=== PATIENT | female | born 1975 | race Caucasian/White ===

== ENCOUNTER 2016-07-14 12:50 | Emergency (ER) | payer SELFPAY ==
[2016-07-14 13:08] VITALS: RESP 14; TEMP 97
[2016-07-14] MEDS ORDERED: traMADol 50 MG TABLET PO ONE (13:09)
--- NOTE | 2016-07-14 15:38 | DI ---
RIGHT ANKLE, 07/14/2016 1:04 PM: Clinical History: Injury. Previous Exam: None at this facility. 3 views are submitted. There is minimal soft tissue swelling over the lateral malleolus. No fracture or dislocation is identified. The ankle mortise is intact. There is no joint effusion. Reading: No fracture noted.
--- NOTE | 2016-07-14 17:23 | PDOC ---
Foot / Ankle Injury - General Chief Complaint: Lower Extremity Problem/Injury Stated Complaint: ANKLE INJURY Date Seen by Provider: 07/14/16 Time Seen by Provider: 12:55 Source: POSITIVE: Patient Exam Limitations: POSITIVE: No limitations Nurse's Notes Reviewed & Considered: Yes - History of Present Illness Initial Comments: The patient is a 40-year-old female who is evaluated with right ankle pain. She states that last night she tripped over her cat and subsequently struck her foot on the bed frame. She states that she had significant pain right away however was able to work last night. When she woke up this morning she had a difficult time bearing weight on her right foot secondary to pain over the lateral aspect of her ankle. She denies any other associated injuries or complaints. Have you received a tetanus shot in the past 10 years?: Yes - Patient Allergies Allergies/Adverse Reactions: Allergies Allergy/AdvReac Type Severity Reaction Status Date / Time ketorolac tromethamine Allergy HIVES Verified 07/14/16 12:56 [From Toradol] Penicillins Allergy HIVES Verified 07/14/16 12:56 - Patient Home Medications Home Medications: Home Medications Diazepam [Valium] 10 mg PO BID PRN 07/14/16 HYDROcodone/APAP 5/325 Tab [[place] 5/325 Tab] 1 each PO Q6H PRN #10 tablet Ibuprofen 1,000 mg PO PRN PRN 07/14/16 Past Medical History - heen HEENT History: Denies History Cardiovascular History: Denies History Respiratory History: Denies History Gastrointestinal History: Denies History Genitourinary History: Denies History Endocrine History: Denies History Musculoskeletal History: Back Pain Prosthesis or Implant: No Additional Musculoskeletal History: MULTIPLE KNEE AND ANKLE INJURIES Neurological History: Denies History Blood Disorders: Denies History Psychiatric History: Denies History Female Reproductive History: Denies History Obstetrical History: Denies History Cancer History: Denies History In Past Year Been Physically Harmed or Verbally Threatened: No History of MDRO: No Tobacco Use: Smoker Current Status Unknown Alcohol Use: Rarely Substance Use Type: None Previous Surgical History: Yes Type / Date of Surgery: B/L KNEE ARTHROSCOPY X2, HYSTERECTOMY 2010, HERNIA UMBILICAL REPAIR, LATERAL RELEASE R KNEE Anesthesia Reactions: No Malignant Hyperthermia: No Family History of Malignant Hyperthermia: No Significant Family History: No pertinent family hx Past Medical History Reviewed: Reviewed - No Changes ROS - Limitations ROS Limitations: No Limitations (Review of systems otherwise noncontributory) Foot / Ankle Exam - General Appearance General Appearance: POSITIVE: Alert, Cooperative, No Acute Distress - Extremities Foot: POSITIVE: Normal Inspection Ankle: POSITIVE: Other (she does have some tenderness over the lateral malleolus as well as some mild bruising, minimal swelling, no deformity, no tenderness in the proximal leg) Gait: POSITIVE: Limited by Pain Neuro: POSITIVE: Sensation Normal, Motor Normal Vascular: POSITIVE: No Vascular Compromise Foot / Ankle Progress - Results Reviewed by me Radiology Findings: X-ray of the right ankle is negative for fracture per radiologist. - Patient's Progress MDM / ED Course: X-ray findings were discussed with the patient. There is no evidence of fracture. She did request pain medication prior to x-ray and was given Ultram. She was placed in a Cam Walker boot. She is advised to elevate and ice her right ankle for the next 24-48 hours. She was given a note not to work tonight and then she has a couple days off. She is advised to continue ibuprofen 600 mg every 6 hours as needed for pain. She was given #10 [place] 5/325 which she can take as needed for more severe pain. She will return to the emergency room if any worsening or change in symptoms. She is advised follow-up with primary care or orthopedic surgery if continued pain in one week. - Consult Counseled: POSITIVE: Patient, RE: Radiology Results, RE: DX, RE: Need for F/U Patient Care Time - Estimated PCT Patient Care Time (In Minutes): 15 Vital Signs - Recent Vital Signs Vital Signs: Vital Signs (Last 8 hours) Temp Pulse Resp BP Pulse Ox 07/14/16 12:51 97.0 F 94 14 114/85 97 - VS Reviewed Vital Signs Reviewed: Yes Discharge Clinical Impression: Sprain of ankle Discharge Disposition: Discharged to Home Condition: Stable Prescriptions / Orders: HYDROcodone/APAP 5/325 Tab [[place] 5/325 Tab] 1 each PO Q6H PRN #10 tablet PRN Reason: Pain Patient Instructions Given at Discharge: Ankle Sprain (ED) Additional Instructions: The x-ray does not reveal any evidence of fracture in the ankle. You've been placed in a Cam Walker boot force stability and comfort. You can bear weight as tolerated. Recommend continuation of ice and elevation. Continue ibuprofen 600 mg every 6 hours as needed for pain. You have also been prescribed [place] 5/ 325 one every 4-6 hours as needed for severe pain. Return to the emergency room if increased pain or numbness, worsening or change in symptoms. Recommend follow-up with primary care or with orthopedic surgery if continued pain in 5-7 days. Follow Up With: ASHLIE OLIVO [Primary Care Provider] -
== END 2016-07-14 13:55 | disposition home or self-care (01) ==
LOC: ER 12:50
DX: S93.401A Sprain of unspecified ligament of right ankle, initial encounter (principal); W18.09XA Striking against other object with subsequent fall, initial encounter
CPT/HCPCS: 73610; 99283

== ENCOUNTER 2016-08-13 15:57 | Emergency (ER) | payer SELFPAY ==
[2016-08-13] MEDS ORDERED: KETOROLAC 15 MG/1 ML VIAL IM ONE (16:11)
--- NOTE | 2016-08-13 16:14 | PDOC ---
Foot / Ankle Injury - General Chief Complaint: Lower Extremity Problem/Injury Stated Complaint: Knee and leg pain Date Seen by Provider: 08/13/16 Time Seen by Provider: 16:12 Source: POSITIVE: Patient Exam Limitations: POSITIVE: No limitations Nurse's Notes Reviewed & Considered: Yes - History of Present Illness Initial Comments: Patient comes in today with chief complaint of left knee and ankle pain. Today patient had been drinking. She said she had had 2 beers and a mixed drink when she was going down a flight of steps, stumbled, fell to the left side. Now complaining of left knee and ankle pain. She had 2 hydrocodone's left from a visit to the emergency room a week ago for a sprained right ankle. She took those and has had no relief. She denies any fever chills or sweats, nausea vomiting or diarrhea, no other injury patterns, specifically, no head injuries, no loss of consciousness. Have you received a tetanus shot in the past 10 years?: Yes Location: Left Ankle Timing: REPORTS: Abrupt Duration: <24 hours Severity: Moderate Quality: REPORTS: "Pain", Stabbing, Throbbing Location at Time of Onset: REPORTS: Bar Context: REPORTS: Fall Modifying Factors: REPORTS: Movement, Rest Any Prior Injuries Related to Current Complaint?: No - Patient Allergies Allergies/Adverse Reactions: Allergies Allergy/AdvReac Type Severity Reaction Status Date / Time ketorolac tromethamine Allergy HIVES Verified 08/13/16 16:02 [From Toradol] Penicillins Allergy HIVES Verified 08/13/16 16:02 - Patient Home Medications Home Medications: Home Medications Diazepam [Valium] 10 mg PO BID PRN 07/14/16 HYDROcodone/APAP 5/325 Tab [Vest 5/325 Tab] 1 each PO Q6H PRN #10 tablet Ibuprofen 1,000 mg PO PRN PRN 07/14/16 Zolpidem Tartrate [Ambien] 10 mg PO BEDTIME PRN PRN 08/13/16 Past Medical History - heen HEENT History: Denies History Cardiovascular History: Denies History Respiratory History: Denies History Gastrointestinal History: Denies History Genitourinary History: Denies History Endocrine History: Denies History Musculoskeletal History: Back Pain Prosthesis or Implant: No Additional Musculoskeletal History: MULTIPLE KNEE AND ANKLE INJURIES Neurological History: Denies History Blood Disorders: Denies History Psychiatric History: Denies History Cancer History: Denies History History of MDRO: No Alcohol Use: Rarely Substance Use Type: None Previous Surgical History: Yes Type / Date of Surgery: B/L KNEE ARTHROSCOPY X2, HYSTERECTOMY 2011, HERNIA UMBILICAL REPAIR, LATERAL RELEASE R KNEE Anesthesia Reactions: No Malignant Hyperthermia: No Significant Family History: No pertinent family hx ROS - Limitations ROS Limitations: No Limitations Constitution: REPORTS: Denies Symptoms Cardiovascular: REPORTS: Denies Cardiac Symptoms Respiratory: REPORTS: Denies Resp Symptoms Neurological: REPORTS: Denies Neuro Symptoms Gastrointestinal: REPORTS: Denies GI Symptoms Endocrine: REPORTS: Denies Symptoms Musculoskeletal: REPORTS: Joint Pain (Left knee and ankle) Genitourinary: REPORTS: Denies Symptoms Eyes: REPORTS: Denies Symptoms ENT: REPORTS: Denies Symptoms Skin: REPORTS: Denies Skin Symptoms Lympathic: REPORTS: Denies Lympathic Symptoms Immunologic: POSITIVE: Denies Symptoms Psychiatric: POSITIVE: Denies Psych Symptoms Foot / Ankle Exam - General Appearance General Appearance: POSITIVE: Alert, No Acute Distress - Extremities Foot: POSITIVE: Normal Inspection, Soft Tissue Tenderness (chest anterior and inferior to the lateral malleolus.), Limited ROM d/t Pain Ankle: POSITIVE: Normal Inspection, Non-Tender (no tenderness to palpation over the lateral malleolus) Gait: POSITIVE: Limited by Pain (patient has been ambulatory since her injury last night but states that the pain is so bad she can barely stand now.) Neuro: POSITIVE: Sensation Normal, Motor Normal Vascular: POSITIVE: No Vascular Compromise, Full Pulses Tendons: POSITIVE: Tendon Function Normal Skin: POSITIVE: Warm, Dry - HEENT HEENT: POSITIVE: Head Inspection Nml, Eyes Inspection Nml, Ears Inspection Nml, Nose Inspection Nml, PERRL, EOMI - Respiratory / CVS Respiratory / CVS: POSITIVE: No Respiratory Distress - Abdomen Abdomen: Denies Tenderness: (All Quadrants) Procedures - Laceration/Wound Repair Did patient have a laceration repair: No Foot / Ankle Progress - Results Reviewed by me Pain Medication Addressed: POSITIVE: Patient Refused Xrays/CTs/US Reviewed by me: Yes Discussed with Radiologist: Yes Radiology Results: POSITIVE: Left, Ankle, Normal, Other (Knee ) Radiology Findings: Radiographs of left ankle and knee per my interpretation shows no acute osseous abnormalities. - Patient's Progress Re-examine Time: 17:08 Status: POSITIVE: Improved MDM / ED Course: Patient was examined. She was offered a shot of Toradol and refused she was also offered Tylenol and refused. She is being discharged home after review of her x-rays. Her x-rays, per my interpretation, shows no acute osseous abnormalities. Options for ice, elevation, Tylenol and ibuprofen as needed. She may return to work without limitations. - Consult Counseled: POSITIVE: Patient, RE: Radiology Results, RE: DX Patient Care Time - Estimated PCT Patient Care Time (In Minutes): 20 Vital Signs - Recent Vital Signs Vital Signs: Vital Signs (Last 8 hours) Temp Pulse Resp BP Pulse Ox 08/13/16 15:58 98.1 F 99 18 106/71 97 - VS Reviewed Vital Signs Reviewed: Yes Discharge Clinical Impression: Ankle pain, Injury of knee Discharge Disposition: Discharged to Home Condition: Good Patient Instructions Given at Discharge: Ankle Sprain (ED), Hematoma (ED)
[2016-08-13 16:19] VITALS: RESP 18; TEMP 98.1
--- NOTE | 2016-08-13 17:01 | DI ---
XR ANKLE COMPLETE MIN 3VW,08/13/2016 4:11 PM: Clinical History: Left ankle pain. Previous Exam: July 14, 2016 contralateral side Findings: 3 views of the left ankle are obtained, and demonstrate anatomic alignment without fractures. The pérez rounding soft tissues are unremarkable. Impression: Normal left ankle.
--- NOTE | 2016-08-13 17:13 | DI ---
XR KNEE 3 VW,08/13/2016 4:11 PM: Clinical History: Left knee pain Previous Exam: None at this facility. Findings: 3 views of the left knee are obtained, and demonstrate anatomic alignment without fractures. The surr ounding soft tissues are unremarkable. Impression: Normal left knee.
== END 2016-08-13 17:15 | disposition home or self-care (01) ==
LOC: ER 15:57
DX: M25.572 Pain in left ankle and joints of left foot (principal); M25.562 Pain in left knee; W10.8XXA Fall (on) (from) other stairs and steps, initial encounter
CPT/HCPCS: 73562; 73610; 99283

== ENCOUNTER → 2016-10-19 | Outpatient (CLI) | payer SELFPAY ==
--- NOTE | 2016-10-19 19:36 | DI ---
CERVICAL SPINE SERIES, 10/19/2016 1:34 PM: Clinical History: Right shoulder pain. Previous Exam: None at this facility. 3 routine upright views are submitted. The vertebral bodies are normal in height and size. The disc s paces are normal. Posterior alignment and lateral masses are normal. C1 articulates normally with C2 and the occiput. Prevertebral soft tissue planes are normal. Reading: Normal cervical spine series.
--- NOTE | 2016-10-19 19:38 | DI ---
RIGHT SHOULDER, 10/19/2016 1:34 PM: Clinical History: Right shoulder pain. Previous Exam: None at this facility. 4 views are submitted. There is no acute soft tissue, osseous, or joint abnormality. The visualized p ortions of the right lung including the right apex are normal. Reading: Normal right shoulder exam.
== END ==
LOC: ORTHO 13:49
PROVIDERS: ATTEND Orthopaedic Surgery
DX: M25.511 Pain in right shoulder (principal)
CPT/HCPCS: 72040; 73030

== ENCOUNTER 2017-01-07 18:29 | Observation (INO) ==
[2017-01-07] MEDS ORDERED: NORMAL SALINE 10 ML SYRINGE FLUSH IVP PRN ×2 (19:06→22:56)
[2017-01-07] MEDS ORDERED: Sodium Chloride 0.9% 1,000 ML PRIMARY IV ONE (19:06)
[2017-01-07 19:29] LABS: BASOPHILS # (AUTO) 0.06 10*3/UL; BASOPHILS % (AUTO) 1.2 % (0-1); EOSINOPHILS # (AUTO) 0.17 10*3/UL; EOSINOPHILS % (AUTO) 3.4 % (0-8); Hematocrit [HCT] 44.5 % (37.0-47.0); Hemoglobin [HGB] 15.3 g/dL (12.0-16.0); MEAN CORPUSCULAR HEMOGLOBIN 33.5 PG (27-31); MEAN CORPUSCULAR HGB CONC 34.4 g/dL (33-37); MEAN CORPUSCULAR VOLUME 97.4 FL (81-99); MONOCYTES # (AUTO) 0.45 10*3/UL (0.3-0.8); NEUTROPHILS # (AUTO) 2.63 10*3/UL; NEUTROPHILS % (AUTO) 52.3 % (50-80); OPIATE SCREEN,URINE NEGATIVE (NEG); RED BLOOD COUNT 4.57 10^6/uL (4.20-5.40); URINE SAMPLE TYPE VOIDED SPECIMEN; URINE SPECIFIC GRAVITY - MAN 1.013
[2017-01-07 19:30] LABS: AMPHETAMINE SCREEN NEGATIVE (NEG); CANNABINOID SCREEN,URINE NEGATIVE (NEG); COCAINE SCREEN NEGATIVE (NEG); METHADONE URINE SCREEN NEGATIVE (NEG); METHAMPHETAMINES SCREEN,URINE NEGATIVE (NEG); PLATELET MORPHOLOGY COMMENT NORMAL MORPHOLOGY (NORM); RBC MORPHOLOGY COMMENT NORMAL MORPHOLOGY (NORM); WBC MORPHOLOGY COMMENT NORMAL MORPHOLOGY (NORM)
[2017-01-07 19:39] LABS: BLOOD UREA NITROGEN 11 mg/dL (7-22); BUN/CREATININE RATIO 15.71 (6-20); SERUM ALBUMIN 4.9 g/dL (3.5-4.8)
--- NOTE | 2017-01-07 20:00 | EKG ---
[address] [address] Measurements Intervals [place] Rate: 70 P: 43 ND: 119 QRS: 75 QRSD: 85 T: 78 QT: 379 QTc: 400 Interpretive Statements SINUS RHYTHM WITH Borderline SHORT ND INTERVAL INTERPRETATION BASED ON A DEFAULT AGE OF 40 YEARS No previous ECG available for comparison Electronically Signed On 01-08-17 10:12:08 MDT by Sammy Padilla MD [email or web address]
[2017-01-07] MEDS ORDERED: HYDROcodone-APAP 10 MG-325 MG TABLET PO ONE (20:05)
--- NOTE | 2017-01-07 20:10 | DI ---
EXAM: CT Head Without Intravenous Contrast CLINICAL HISTORY: Syncope TECHNIQUE: Axial computed tomography images of the head/brain without intravenous contrast. COMPARISON: No relevant prior studies available. FINDINGS: Brain: Unremarkable. No acute hemorrhage. Normal rhodes-white differentiation. No significant mass effect. Ventricles: Unremarkable. No ventriculomegaly. Bones/joints: Unremarkable. No acute fracture. Soft tissues: Unremarkable. Sinuses: Unremarkable as visualized. No acute sinusitis. Mastoid air cells: Unremarkable. IMPRESSION: No acute intracranial abnormality.
--- NOTE | 2017-01-07 21:52 | DI ---
LEFT KNEE, 01/07/2017 7:09 PM: Clinical History: Trauma. Previous Exam: 08/13/2016. 3 views are submitted. There is no acute soft tissue, osseous, or joint abnormality. There is mild la teral subluxation of the patella. Reading: There is no fracture or dislocation. There is very mild lateral subluxation of the patella.
--- NOTE | 2017-01-07 21:52 | DI ---
RIGHT KNEE, 01/07/2017 7:10 PM: Clinical History: Trauma. Previous Exam: None at this facility. 3 views are submitted. There is no acute soft tissue, osseous, or joint abnormality. Reading: Normal right knee exam.
[2017-01-07] MEDS ORDERED: ACETAMINOPHEN 500 MG TABLET PO PRN (22:59)
--- NOTE | 2017-01-07 23:03 | PDOC ---
HPI - History of Present Illness Date and Time of Service: 12/30/2016 11:03 PM Chief Complaint: Dizziness for 2 weeks and she passed out today and fell History of Present Illness: This is a 41 years old medical history significant for history of bipolar disorder, history of chronic back pain and knee pain who is been feeling dizzy the last 2 weeks today she got up from the couch to the kitchen and then she passed out and she managed to call her and then they brought her to the hospital for evaluation. She was given fluid in the ER and was admitted for observation. She denied chest pain, shortness of breath, no palpitation. She said she has a history of bipolar disorder as he takes 400 mg of Seroquel every other night, and also at times take Valium at night and also Ambien at night. Past Medical History Medical History: 1. History of bipolar disorder on Seroquel. 2. History of back pain Surgical History: 1. History of previous knee scope. 2. History of cholecystectomy Family History: Reviewed an Not Pertinent Past Social History: Does not smoke, does not drink, no drugs. Used to live in [place] she sees Kecia Schilling Tobacco Use: Never Smoker In the Past 12 Months, Have Used or Abuse Any of the Following Substance: None Alcohol Use: None Medication / Allergies Home Medications: Home Medications Medication Instructions Recorded Confirmed Type Diazepam [Valium] 10 mg PO BID PRN 07/14/16 01/08/17 History Zolpidem Tartrate [Ambien] 10 mg PO BEDTIME PRN PRN 08/13/16 01/08/17 History Allergies/Adverse Reactions: Allergies 3 Allergy/AdvReac Type Severity Reaction Status Date / Time ketorolac tromethamine Allergy HIVES Verified 01/07/17 22:54 [From Toradol] Penicillins Allergy HIVES Verified 01/07/17 22:54 gabapentin AdvReac HIVES Verified 01/07/17 22:54 Review of Systems - Review of Systems All Systems: Reviewed & No Additional Complaints Except as Stated Exam - Vitals Vital Signs: Vital Signs Height 5 ft 8 in Weight 113 lb - General General Appearance: No Acute Distress, Cooperative, Thin - Head Head Exam: Normal Inspection Additional Head Exam Details: Slight bruise on the right side of the forehead - Eye Eye Exam: POSITIVE: Normal Appearance - ENT ENT Exam: POSITIVE: Normal Exam - Neck Neck Exam: Normal Inspection - Respiratory Respiratory Exam: POSITIVE: Clear to Auscultation - Bilaterally - Cardiovascular Cardiovascular Exam: POSITIVE: RRR - GI/Abdominal GI/Abdominal Exam: POSITIVE: Normal Bowel Sounds, Non Tender, Non Distended, Soft - Rectal Rectal Exam: POSITIVE: Deferred - External Exam: POSITIVE: Deferred - Extremities Additional Extremities Exam Details: Abrasions noted on both knees - Back Back Exam: POSITIVE: Normal Inspection - Neurological Neurological Exam: POSITIVE: Alert, Oriented x 3, Moves All Extremities Equally - Psychiatric Psychiatric Exam: POSITIVE: Normal Affect Results - Labs CBC and BMP: 01/07/17 19:20 01/08/17 04:49 - EKG Data -: EKG Interpreted by Me (EKG normal sinus rhythm short ND interval.) - Imaging Status: Report Reviewed by Me (CT of the head was negative, x-ray of the right knee no fracture or dislocation. X-ray of the left knee no fracture or dislocation very subtle mild subluxation.) Assessment and Plan - Patient Problems (1) Syncope Current Visit: Yes Status: Acute Comment: This looks like the effects of medications. She is on Seroquel 400 mg , Valium and Ambien. She is not sure whether she took the Valium or the Ambien last night but she did take the Seroquel. I told her probably need to cut back on the dosage of the medication as likely the contributing to her dizziness. We 'll watch her overnight given some fluid. Repeat her labs in the morning. Code(s): R55 - Syncope and collapse
[2017-01-07] MEDS: Sodium Chloride 0.9% 1,000 ML PRIMARY IV SCH (23:38)
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
[2017-01-08 05:48] LABS: BLOOD UREA NITROGEN 10 mg/dL (7-22); BUN/CREATININE RATIO 14.28 (6-20); SERUM ALBUMIN 3.2 g/dL (3.5-4.8)
[2017-01-08] MEDS ORDERED: HYDROcodone-APAP 7.5 MG-325 MG TABLET PO ONE (07:19)
[2017-01-08 07:27] VITALS: BP 109/88; RESP 16; TEMP 98.7; O2SAT 99
--- NOTE | 2017-01-08 07:34 | DCSUMMARY ---
Hospitalization Summary Admit Date: 01/07/17 Discharge Date: 01/08/17 Hospital Course: Discharge instruction 1. Syncope likely medications related 2. History of bipolar disorder 3. History of right knee pain had previous scopes before 4. History of back pain Hospital Course This is a 41 years old female with medical history significant for history of bipolar disorder, history of chronic back pain and knee pain has been feeling dizzy the last 2 weeks and on the day of admission she got up from the couch down to the kitchen and she passed out she may called her and he brought her to the hospital for evaluation. She was given fluids and was admitted for observation. She did have a a bruise to the right forehead and abrasion to the knees. She had the x-rays done there is no evidence of fracture or dislocation. CT of the head was negative. we admitted her for observation continued with fluids. There was no arrhythmia noted. The EKG that she had showed only short HI interval but otherwise no other abnormalities. Her troponin remained negative. She denied chest pain, shortness of breath and no palpitation. She is normally on Seroquel 400 at night also she takes Ambien and Valium. I thought her symptoms are related to the medications that she is been taking. I advised her to cut back on those medications. She can follow-up with her primary then they can decided if they want to do more investigation which can be done as an outpatient. But I still think it's noncardiac in etiology and the likely medications related. Patient did ask multiple times for IV morphine for her pain which we did not as did not appear in pain to justify IV narcotics. On discharge she did get a brace for the right knee and a walker Laboratory Results 01/07/17 01/07/17 01/07/17 Range/Units 19:20 19:20 19:20 WBC 5.02 (4.8-10.8) 10^3/uL RBC 4.57 (4.20-5.40) 10^6/uL Hgb 15.3 (12.0-16.0) g/dL Hct 44.5 (37.0-47.0) % MCV 97.4 (81-99) FL MCH 33.5 H (27-31) PG MCHC 34.4 (33-37) g/dL RDW Std Deviation 46.1 (39-50) fL RDW Coeff of Kj 13.0 (11.5-14.5) % Plt Count 224 (140-350) 10*3/uL MPV 10.0 (7.4-12.2) FL Immature Gran % (Auto) 0.2 (0-5) % Neut % (Auto) 52.3 (50-80) % Lymph % (Auto) 33.9 (10-50) % [place] % (Auto) 9.0 (5-15) % Eos % (Auto) 3.4 (0-8) % Baso % (Auto) 1.2 H (0-1) % Immature Gran # (Auto) 0.01 10*3/UL Neut # (Auto) 2.63 10*3/UL Lymph # (Auto) 1.70 10*3/uL [place] # (Auto) 0.45 (0.3-0.8) 10*3/UL Eos # (Auto) 0.17 10*3/UL Baso # (Auto) 0.06 10*3/UL WBC Morphology Comment Normal morphology (NORM) Plt Morphology Comment Normal morphology (NORM) RBC Morph Comment Normal morphology (NORM) Sodium 144 (135-145) meq/L Potassium 4.6 (3.8-5.2) meq/L Chloride 104 (98-112) meq/L Carbon Dioxide 28 (23-33) meq/L Anion Gap 12 (5-20) BUN 11 (7-22) mg/dL Creatinine 0.7 (0.50-1.20) mg/dL Estimated GFR > 60 (>60 ml/min/1.73m(2)) BUN/Creatinine Ratio 15.71 (6-20) Glucose 87 (78-110) mg/dL Calculated Osmolality 295.0 H (267-292) mOsm/kg Calcium 10.0 (8.7-10.7) mg/dL Total Bilirubin 0.6 (0.3-1.2) mg/dL AST 45 H (8-39) IU/L ALT 32 (9-52) IU/L Alkaline Phosphatase 88 (38-126) IU/L Troponin I (< 0.040) ng/mL Total Protein 8.2 H (6.1-8.0) g/dL Albumin 4.9 H (3.5-4.8) g/dL Globulin 3.3 (2.50-4.10) g/dL Albumin/Globulin Ratio 1.40 (1.3-2.0) mg/g Ur Collection Type Voided specimen U Specif Grav (Refrac) 1.013 Urine Opiates Screen Negative (NEG) Ur Buprenorphine Negative (NEG) Ur Oxycodone Screen Negative (NEG) Urine Methadone Screen Negative (NEG) Ur Propoxyphene Screen Negative (NEG) Barbiturate Screen Negative (NEG) U Tricyclic Antidepress Positive H (NEG) Phencyclidine Screen Negative (NEG) Amphetamines Screen Negative (NEG) U Methamphetamines Scrn Negative (NEG) Benzodiazepines Screen Positive H (NEG) Cocaine Screen Negative (NEG) U Marijuana (THC) Screen Negative (NEG) 01/08/17 01/08/17 Range/Units 04:49 04:49 WBC (4.8-10.8) 10^3/uL RBC (4.20-5.40) 10^6/uL Hgb (12.0-16.0) g/dL Hct (37.0-47.0) % MCV (81-99) FL MCH (27-31) PG MCHC (33-37) g/dL RDW Std Deviation (39-50) fL RDW Coeff of Jk (11.5-14.5) % Plt Count (140-350) 10*3/uL MPV (7.4-12.2) FL Immature Gran % (Auto) (0-5) % Neut % (Auto) (50-80) % Lymph % (Auto) (10-50) % [place] % (Auto) (5-15) % Eos % (Auto) (0-8) % Baso % (Auto) (0-1) % Immature Gran # (Auto) 10*3/UL Neut # (Auto) 10*3/UL Lymph # (Auto) 10*3/uL [place] # (Auto) (0.3-0.8) 10*3/UL Eos # (Auto) 10*3/UL Baso # (Auto) 10*3/UL WBC Morphology Comment (NORM) Plt Morphology Comment (NORM) RBC Morph Comment (NORM) Sodium 142 (135-145) meq/L Potassium 3.7 L (3.8-5.2) meq/L Chloride 110 (98-112) meq/L Carbon Dioxide 23 (23-33) meq/L Anion Gap 9 (5-20) BUN 10 (7-22) mg/dL Creatinine 0.7 (0.50-1.20) mg/dL Estimated GFR > 60 (>60 ml/min/1.73m(2)) BUN/Creatinine Ratio 14.28 (6-20) Glucose 78 (78-110) mg/dL Calculated Osmolality 291.0 (267-292) mOsm/kg Calcium 8.7 (8.7-10.7) mg/dL Total Bilirubin 0.4 (0.3-1.2) mg/dL AST 23 (8-39) IU/L ALT 32 (9-52) IU/L Alkaline Phosphatase 68 (38-126) IU/L Troponin I < 0.012 (< 0.040) ng/mL Total Protein 5.5 L (6.1-8.0) g/dL Albumin 3.2 L (3.5-4.8) g/dL Globulin 2.3 L (2.50-4.10) g/dL Albumin/Globulin Ratio 1.30 (1.3-2.0) mg/g Ur Collection Type U Specif Grav (Refrac) Urine Opiates Screen (NEG) Ur Buprenorphine (NEG) Ur Oxycodone Screen (NEG) Urine Methadone Screen (NEG) Ur Propoxyphene Screen (NEG) Barbiturate Screen (NEG) U Tricyclic Antidepress (NEG) Phencyclidine Screen (NEG) Amphetamines Screen (NEG) U Methamphetamines Scrn (NEG) Benzodiazepines Screen (NEG) Cocaine Screen (NEG) U Marijuana (THC) Screen (NEG) Discharge instructions Diet regular activity as tolerated medications Home Medications Medication Instructions Recorded Confirmed Type Diazepam [Valium] 10 mg PO BID PRN 07/14/16 01/08/17 History Acetaminophen [Tylenol] 500 mg PO Q6H PRN #10 tab 01/08/17 Rx F/U with PCP 1-2 weeks and F/U with Orthopedics next week Condition as discharge was stable for discharge. Exam - Vitals Vital Signs: Vital Signs Temperature 98.7 F Temperature Source Oral Pulse Rate [Pulse Oximeter] 79 Pulse Rate [Standing] 90 Pulse Rate [Sitting] 90 Pulse Rate [Lying] 84 Pulse Rate 79 Respiratory Rate 16 Blood Pressure [Standing] 105/79 Blood Pressure [Sitting] 109/80 Blood Pressure [Lying] 105/79 Blood Pressure [Right Arm] 109/88 Pulse Ox 99 Oxygen Delivery Method Room Air Height 5 ft 8 in Weight 120 lb - General General Appearance: No Acute Distress, Cooperative, Thin - Head Head Exam: Normal Inspection - Eye Eye Exam: POSITIVE: Normal Appearance - ENT ENT Exam: POSITIVE: Normal Exam - Neck Neck Exam: Normal Inspection - Respiratory Respiratory Exam: POSITIVE: Clear to Auscultation - Bilaterally - Cardiovascular Cardiovascular Exam: POSITIVE: RRR - GI/Abdominal GI/Abdominal Exam: POSITIVE: Normal Bowel Sounds, Non Tender, Non Distended, Soft - Rectal Rectal Exam: POSITIVE: Deferred - External Exam: POSITIVE: Deferred - Extremities Additional Extremities Exam Details: Abrasions noted to the knees. No effusions. - Neurological Neurological Exam: POSITIVE: Alert, Oriented x 3, CN II-XII Intact - Psychiatric Psychiatric Exam: POSITIVE: Normal Affect Patient Problems - Patient Problem List (1) Syncope Status: Acute Code(s): R55 - Syncope and collapse Category: Medical
[2017-01-08] MEDS: Sodium Chloride 0.9% 1,000 ML PRIMARY IV SCH (08:40)
--- NOTE | 2017-01-11 12:28 | PT AM DAY ---
AM - Inpatient Observation S: The patient states she has severe knee pain. O: The patient was fit with a knee brace and walker and then ambulated 50 feet. The patient was returned to bed with bed alarm on and call light within reach. A: The patient tolerated ambulation well; however, she has a lot of pain. P: No further therapy is indicated at this time. MTDD
== END 2017-01-08 12:12 | disposition home or self-care (01) ==
LOC: MED/SURG 18:29 → ER 18:29
PROVIDERS: ADMIT Internal Medicine; ATTEND Internal Medicine